=== PATIENT | male | born 1970 | race Caucasian/White ===

== ENCOUNTER 2016-09-09 09:58 | Emergency (ER) | payer BC ==
[~2016-09-09] VITALS: Ht 177.8 cm; Wt 78.0 kg
[~2016-09-09 09:58] MED LIST: AMOX500T2 PO; LORA10CA PO; METO-272 PO; NEOM10DR9 EACH EAR; TRAM-25 PO
[2016-09-09] MEDS ORDERED: SODIUM CHLORIDE FLUSH 10 ML SYR IV PRN (10:45)
[2016-09-09] MEDS ORDERED: SODIUM CHLORIDE FLUSH 3 ML SYR IV PRN (10:45)
[2016-09-09] MEDS ORDERED: ONDANSETRON 2 MG/ML (Z0FRAN) 2 ML VIAL IV ONE (10:45)
[2016-09-09 11:15] LABS: BASOPHILS % (AUTO) 1 % (0-2); EOSINOPHILS # (AUTO) 0.2 10^3uL; EOSINOPHILS % (AUTO) 2 % (0-4); MEAN CORPUSCULAR HEMOGLOBIN 32.6 PG (26.0-34.0); MEAN CORPUSCULAR HGB CONC 35.4 g/dL (31.0-37.0); MEAN CORPUSCULAR VOLUME 92 FL (80-100); MEAN PLATELET VOLUME 10.3 FL (6.0-9.5); MONOCYTES # (AUTO) 0.9 X10^3; MONOCYTES % (AUTO) 13 % (3-11); NEUTROPHILS # (AUTO) 4.9 X10^3; NEUTROPHILS % (AUTO) 69 % (51-67); PLATELET COUNT 259 10^3uL (150-450); WHITE BLOOD COUNT 7.03 10^3uL (4.0-11.0)
[2016-09-09 11:27] LABS: ALBUMIN 4.5 g/dL (3.4-5.0); ANION GAP 18.9 MEQ/L (3-15); CALCULATED IONIZED CALCIUM 4.1 mg/dL (3.8-4.6); TOTAL PROTEIN 8.4 g/dL (6.4-8.5)
[2016-09-09 11:32] LABS: CLARITY,URINE Clear; GLUCOSE, URINE (UA) Negative (Negative); LEUKOCYTE ESTERASE ,URINE Negative (Negative); PH,URINE 5.5 (5.0 - 8.0)
[2016-09-09 11:37] LABS: BILIRUBIN,URINE 3+ (Negative); COLOR,URINE Dark Yellow; RBC,URINE 0-2 /HPF; URINE CENTRIFUGED VOLUME <10mL Unspun
--- NOTE | 2016-09-09 12:08 | Diagnostic Imaging Report ---
INDICATION: Nausea, vomiting, diarrhea and earaches for 4 days. FINDINGS: Upright view of the chest demonstrates lungs to be clear. The heart, mediastinum and pulmonary vascularity are normal. Supine and upright views of abdomen demonstrate normal bowel gas pattern. No abnormal calcifications are present. IMPRESSION: Negative obstructive series. Dictated by: Dictated on workstation # [id number]
[2016-09-09] MEDS ORDERED: meTOprolol 5 MG/5 ML (LOPRESSOR) VIAL IV ONE (12:20)
[2016-09-09] MEDS ORDERED: METOCLOPRAMIDE 10 MG/2 ML (REGLAN) VIAL IV ONE (12:20)
[2016-09-09] MEDS ORDERED: MTC10T PO (14:01)
[2016-09-09 15:03] VITALS: BP 154/119
== END 2016-09-09 14:47 | disposition home or self-care (01) ==
LOC: ED 10:02
DX: K52.9 Noninfective gastroenteritis and colitis, unspecified (principal); I10 Essential (primary) hypertension; F17.210 Nicotine dependence, cigarettes, uncomplicated
CPT/HCPCS: 36415; 74022; 80053; 81003; 81015; 83690; 85025; J2405; J2765; J7030; 96361; 96374; 96375; 99283